=== PATIENT | female | born 1970 | race Caucasian/White ===

== ENCOUNTER 2016-05-13 07:18 | Emergency (ER) | payer OTHER ==
[~2016-05-13] VITALS: Ht 162.6 cm; Wt 72.7 kg
[~2016-05-13 07:18] MED LIST: ONDA8TAB10 PO; SULF1TAB35 PO; SULF1TAB7 PO
[2016-05-13 07:22] VITALS: BP 132/87; RESP 16; O2SAT 97
[2016-05-13] MEDS ORDERED: METH10OR11 PO (07:27)
--- NOTE | 2016-05-13 07:59 | ED.REPORT ---
HPI-URI / Cough / Cold Date of Service May 13, 2016 ED Provider: Bess Grace MD This is a 45 year old female presenting to the emergency due to sore throat that began 2 days ago. Associated symptoms include two episodes emesis, nausea, and decreased PO intake. Denies rhinorrhea, cough, abdominal pain, SOB, diarrhea , constipation, headache, fever, chills, or chest pain at this time. Nursing Notes Stated Complaint: VOMITING/HEADACHE Chief Complaint: ENT & Mouth Nursing Notes Reviewed: Yes Allergies: Coded Allergies: No Known Allergies (Verified , 05/13/16) Scheduled Penicillin V Potassium (Penicillin V Potassium) 500 Mg Tablet 500 MG PO BID Scheduled PRN Ondansetron ODT (Ondansetron ODT) 8 Mg Tab.rapdis 8 MG PO Q6H PRN PRN For Nausea /Vomiting Miscellaneous Medications Methadone (Methadone) 10 Mg/1 Ml Oral.conc 100 MG PO General Time Seen by MD: 07:54 Chief Complaint Sore throat Hx Obtained From: Patient Arrived By: Walk-in Onset Occurred: 2 days ago Symptom Duration: Since onset Severity: Current: Mild Pertinent Negative: Pt denies other symptoms Recent Healthcare: No recent doctor visit, No recent hospitalization Similar Sx Previous: No Past Medical History Past Medical History Hx of IV drug abuse Hx of abscesses requiring I&D Lower extremity wounds Past Surgical History ear and shoulder Reports: Tubal ligation Family History noncontributory Smoking History Current Every Day Smoker Social History Drug Use: In recovery Other Social History: Good social support, Local resident 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 Physical Exam Initial Vital Signs Vital Signs (First) Date Time Temp Pulse Resp B/P Pulse Ox O2 Delivery O2 Flow Rate FiO2 05/13/16 07:22 36.8 77 16 132/87 97 Room Air Initial VS: Reviewed, Vital signs normal Head / Eyes: Atraumatic, Normocephalic, PERRL Cardiovascular: Regular rate & rhythm, Heart sounds normal, Intact distal pulses Abdomen / GI: Soft, Non-tender, No guarding, No rebound, No distention Extremities: Vascular intact, Neuro intact, No swelling, No tenderness Skin: Warm, Dry, No cyanosis Neurologic: Alert, Oriented, Nonfocal Psychiatric: Mood/affect normal, Behavior normal, Normal thought content General/Constitutional: Awake, Alert Mouth: Positive: Mucous membranes dry Pharynx / Tonsils / Uvula: Positive: Pharyngeal erythema, Tonsillar exudate L, Tonsillar exudate R, Tonsillar swelling L, Tonsillar swelling R Respiratory / Chest: Breath sounds NL, Breath sounds = bilat, No respiratory distress, No rales, No rhonchi, No wheezing, No retractions, No stridor Neck: No meningismus, Full range of motion, No swelling Adenoid tenderness Re-Eval/Medical Decision Med Decision/Clinical Course The patient's symptoms are consistent with pharyngitis, she had confirmed strep positive pharyngitis. There is no sign of complication such as retropharyngeal or peritonsillar abscess. Counseled Regarding: Diagnosis, Lab results, Need for follow-up, When/why to return to ED Discharge & Departure Impression: Primary Impression: Strep pharyngitis Disposition: Home Discharge Condition All VS Reviewed: Yes Condition: Stable Patient Instructions: Strep Throat (ED) Additional Instructions: Thank you for seeking care at the emergency department today. You have strep throat, take the antibiotics as prescribed. Be sure to consume frequent clear fluids. Follow-up with your primary care provider with persistent symptoms. Return to the emergency department for any new or worsening symptoms. Referrals: Lexy Mcdonnell MD (PCP) Scribe Attestation Portions of this note were transcribed by Gregor Duque. I, Dr. Grace personally performed the history, physical exam and medical decision-making; I reviewed and confirmed the accuracy of the information in the transcribed note. Signed by: juan carlos Jessica. 05/13/2016, 15:00. Bess Grace MD May 13, 2016 07:59 GREGOR DUQUE May 13, 2016 08:00
[2016-05-13] MEDS ORDERED: PENI500T PO (08:53)
[2016-05-13] MEDS ORDERED: ONDA8TAB10 PO (08:53)
[2016-05-13 09:06] VITALS: BP 131/85; PULSE 75; RESP 18; O2SAT 96
== END 2016-05-13 08:45 | disposition home or self-care (01) ==
LOC: SED 07:18
DX: J02.0 Streptococcal pharyngitis (principal); F17.200 Nicotine dependence, unspecified, uncomplicated